=== PATIENT | male | born 1990 | race Caucasian/White ===

== ENCOUNTER 2017-08-21 16:25 | Emergency (ER) | payer OTHER ==
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
[2017-08-21] MEDS ORDERED: SKIN ADHESIVE (DERMABOND) 1 EACH TP ONE (17:02)
[2017-08-21] MEDS ORDERED: OXYCODONE/APAP 5/325 TAB PO ONE (17:40)
[2017-08-21 19:21] VITALS: BP 126/89
== END 2017-08-21 19:25 | disposition home or self-care (01) ==
PROC: 2W3CX1Z Immobilization of Right Lower Arm using Splint (ICD-10-PCS; principal; 2017-08-21)
DX: S52.571A Other intraarticular fracture of lower end of right radius, initial encounter for closed fracture (principal); S02.31XA Fracture of orbital floor, right side, initial encounter for closed fracture; S02.411A LeFort I fracture, initial encounter for closed fracture; S52.614A Nondisplaced fracture of right ulna styloid process, initial encounter for closed fracture; V00.131A Fall from skateboard, initial encounter; Y93.51 Activity, roller skating (inline) and skateboarding

== ENCOUNTER → 2017-08-28 | Outpatient (CLI) | payer OTHER | LOC: FIMAGING 09:37 | PROVIDERS: ATTEND Otolaryngology | DX: S02.31XD Fracture of orbital floor, right side, subsequent encounter for fracture with routine healing (principal); S02.40ED Zygomatic fracture, right side, subsequent encounter for fracture with routine healing; Z98.890 Other specified postprocedural states ==